=== PATIENT | male | born 1990 | race Caucasian/White ===

== ENCOUNTER 2017-07-14 19:25 | Emergency (ER) | payer SELFPAY ==
[~2017-07-14] VITALS: Ht 177.8 cm; Wt 90.8 kg
[2017-07-14 19:45] VITALS: Ht 177.8 cm; Wt 90.8 kg
[2017-07-14] MEDS ORDERED: KETOROLAC 60 MG INJ IM STA (20:29)
--- NOTE | 2017-07-14 20:39 | ERD ---
ER Documentation Chief Complaint Chief Complaint bilateral low back pain x 3 days; denies injury and diff urinating HPI 27-year-old male presents emergency department for lower back pain for 3 days. Stated it is worse on movement. Denies headache, dizziness, blurred vision, neck pain, throat pain, difficulty swallowing, shoulder pain, chest pain, abdominal pain, nausea, vomiting, constipation, diarrhea, loss of bowel and bladder control, changes in bowel and bladder habits, penile discharge, penile bleeding, trauma, injury, falls, difficulty walking, numbness or tingling sensation, recent exposure to any illness, recent antibiotic use in the last 3 months, recent travel, fever, chills. ROS All systems reviewed and are negative except as per history of present illness. Allergies Allergies: Coded Allergies: No Known Drug Allergy (Verified Allergy, Mild, 02/28/10) PMhx/Soc Medical and Surgical Hx: pt denies Medical Hx, pt denies Surgical Hx History of Surgery: No Anesthesia Reaction: No Hx Neurological Disorder: No Hx Respiratory Disorders: No Hx Cardiac Disorders: No Hx Psychiatric Problems: No Hx Miscellaneous Medical Probl: No Hx Alcohol Use: No Hx Substance Use: No Hx Tobacco Use: No Smoking Status: Never smoker Physical Exam Vitals Vital Signs Date Time Temp Pulse Resp B/P Pulse Ox O2 Delivery O2 Flow Rate FiO2 07/14/17 19:45 98.3 83 20 155/86 98 Physical Exam Const: Well-appearing. No acute distress. Head: Atraumatic Eyes: Normal Conjunctiva ENT: Normal External Ears, Nose and Mouth. Neck: Full range of motion..~ No meningismus. Resp: Clear to auscultation bilaterally Cardio: Regular rate and rhythm, no murmurs Abd: Soft, non tender, non distended. Normal bowel sounds Skin: No petechiae or rashes Back: No midline or flank tenderness. C-spine/T-spine/L-spine are in midline with good and full range of motion and has no swelling/discoloration/ bulging/point of tenderness. Negative straight leg test bilaterally. No saddle anesthesia. Ext: No cyanosis, or edema Neur: Awake and alert. No neurological deficits. Romberg test negative. Psych: Normal Mood and Affect Results 24 hrs Laboratory Tests Test 07/14/17 20:51 Bedside Urine pH (LAB) 6.0 Bedside Urine Protein (LAB) Negative Bedside Urine Glucose (UA) Negative Bedside Urine Ketones (LAB) Negative Bedside Urine Blood Trace-intact Bedside Urine Nitrite (LAB) Negative Bedside Urine Leukocyte Esterase (L Negative Current Medications Medications (Trade) Dose Ordered Sig/Ivett Route PRN Reason Start Time Stop Time Status Last Admin Dose Admin Ketorolac Tromethamine (Toradol) 60 mg ONCE STAT IM 07/14/17 20:29 07/14/17 20:30 DC 07/14/17 20:53 Procedures/MDM I explained to the patient that there is no need for diagnostic imaging for this because he has no injury, physical exam showed that this is possibly musculoskeletal spasms but patient still insists x-ray of the lumbar spine. POC urine dip: Reviewed. X-ray of the lumbar spine: Normal radiographs of the lumbar spine. No evidence of fracture or significant degenerative disc disease. X-ray of the thoracic spine: Mild left convex scoliosis centered at T8. Otherwise, normal radiographs of the thoracic spine. No evidence of fracture or significant degenerative disc disease. Treatment: Toradol IM. With relief of symptoms. Re-evaluation: Denies pain. No saddle anesthesia. Romberg test is negative. Ambulatory with steady gait and without difficulty. Differential diagnosis includes but not limited to fracture versus contusion versus sprain versus lower back strain versus sciatica versus musculoskeletal spasms Final diagnosis: Scoliosis. Musculoskeletal spasms. Prescription: Motrin. Flexeril. Follow-up with PCP in the next 24-48 hours. Come back here in the emergency department for any new symptoms or any worsening symptoms. All questions and concerns are answered. Patient and family member verbalized understanding and agreed with the plan of care. Hemodynamically stable on discharge. Departure Diagnosis: Primary Impression: Back pain Additional Impressions: Scoliosis Muscle spasm Condition: Stable Additional Instructions: Follow-up with PCP in the next 24-48 hours. Come back here in the emergency department for any new symptoms or any worsening symptoms. All questions and concerns are answered. Patient and family member verbalized understanding and agreed with the plan of care. JOHNNY NANCE Jul 14, 2017 20:39
[2017-07-14 20:52] LABS: URINE BLOOD (Dip) POC Trace-intact (NEGATIVE)
--- NOTE | 2017-07-14 21:53 | RADRPT ---
PROCEDURE: XR Thoracic Spine. CLINICAL INDICATION: Thoracic spine pain. TECHNIQUE: AP and lateral views of the thoracic spine were obtained. Images reviewed on a PACS wor kstation. COMPARISON: No prior studies are available for comparison. FINDINGS: There is a mild left convex scoliosis centered at T8. The vertebral body heights and marrow density are normal in appearance. There is preservation of the intervertebral disc spaces. The neural for osmani appear patent. The paraspinal soft tissues unremarkable. The visualized portions of the thor ax are unremarkable. IMPRESSION: 1. Mild left convex scoliosis centered at T8. 2. Otherwise, normal radiographs of the thoracic spine. No evidence of fracture or significant deg enerative disc disease. RPTAT: HGAS .Dev Palacios MD, MD Date Time Electronically viewed and signed by .Dev Palacios MD, on 07/14/2017 21:53 .S/
--- NOTE | 2017-07-14 21:56 | RADRPT ---
PROCEDURE: XR Lumbar Spine. CLINICAL INDICATION: Lumbar spine pain. TECHNIQUE: AP, lateral, and cone-down lateral view of the lumbar spine were obtained. COMPARISON: No prior studies are available for comparison. FINDINGS: The alignment of the lumbar spine is within normal limits. The vertebral body heights and marrow de nsity are normal in appearance. There is preservation of the intervertebral disc spaces. There is no significant facet spondylosis. The neural foramina appear patent. The paraspinal soft tissues u nremarkable. The posterior elements are unremarkable. IMPRESSION: 1. Normal radiographs of the lumbar spine. 2. No evidence of fracture or significant degenerative disc disease. RPTAT: HGAS .Dev Palacios MD, MD Date Time Electronically viewed and signed by .Dev Palacios MD, on 07/14/2017 21:56 .S/
[2017-07-14] MEDS ORDERED: IBUP800T25 PO (22:31)
[2017-07-14] MEDS ORDERED: CYCL-319 PO (22:32)
[2017-07-14 23:10] VITALS: BP 147/83; PULSE 78; RESP 20
== END 2017-07-14 23:11 | disposition home or self-care (01) ==
LOC: FTE 19:25
DX: M41.9 Scoliosis, unspecified (principal)
CPT/HCPCS: 72072; 72100; 81003; 96372; 99284; J1885

== ENCOUNTER 2019-01-12 17:51 | Inpatient (IN) | payer MEDICAID ==
[~2019-01-12] VITALS: Ht 167.6 cm; Wt 90.0 kg
[~2019-01-12 17:51] MED LIST: CYCL10TA7 PO; IBUP800T48 PO
[2019-01-12] MEDS ORDERED: ONDANSETRON 4 MG INJ IV STA (19:58)
[2019-01-12] MEDS ORDERED: KETOROLAC 30 MG INJ IV STA (19:58)
[2019-01-12] MEDS ORDERED: SOD CHLORIDE 0.9% 1,000 ML IV STA (19:58)
[2019-01-13] MEDS ORDERED: VANCOMYCIN 1 GM (PMX) 250 ML IVPB STA (01:12)
--- NOTE | 2019-01-13 01:16 | EN ---
Date/Time of Note Date/Time of Note DATE: 01/13/19 TIME: 01:15 ER Progress Note Lumbar Puncture by me: Patient consented, time out performed, sterilely prepped/draped, anesthetized locally. Anesthesia: 1% lidocaine locally Location: One interspace below the iliac crest Technique: 20 gauge needle with stylet for entry and removal of needle Results: Dry tap No post procedure complications, bleeding, numbness or weakness. This patient was signed out to me by the PA in ER 2. Please refer to her chart for full history and physical. Upon evaluating patient, I consented the patient for lumbar puncture. Unfortunately was unable to complete the lumbar puncture. Patient was treated empirically with Rocephin and vancomycin along with fluids YOANNA HEWITT January 13, 2019 01:16
[2019-01-13] MEDS ORDERED: CEFTRIAXONE 2 GM/50 ML (PMX) 50 ML IVPB ONE (01:30)
[2019-01-13] MEDS ORDERED: BISACODYL (EC) 5 MG TAB PO PRN (02:00)
[2019-01-13] MEDS ORDERED: ONDANSETRON 4 MG INJ IV PRN (02:00)
[2019-01-13] MEDS ORDERED: DOCUSATE SODIUM 100 MG CAP PO PRN (02:00)
[2019-01-13] MEDS ORDERED: VANCOMYCIN IV PER PHARMACY XX SCH (02:00)
[2019-01-13] MEDS ORDERED: NACL 0.9% 3 ML SYG IV SCH (02:00)
[2019-01-13] MEDS: ACETAMINOPHEN 325 MG TAB PO PRN ×2 (02:53→15:46)
[2019-01-13] MEDS: HYDROCODONE/APAP (5/325) TAB PO PRN ×2 (02:53→10:33)
[2019-01-13 03:28] VITALS: Ht 167.6 cm; Wt 90.0 kg
[2019-01-13 03:46] VITALS: BP 132/62; PULSE 104; RESP 20
--- NOTE | 2019-01-13 04:09 | HP ---
Date/Time of Note Date/Time of Note DATE: 01/13/19 TIME: 04:09 Assessment/Plan VTE Prophylaxis SCD applied (from Nsg): Yes Pharmacological prophylaxis: NA/contraindicated Pharm contraindication: low risk/ambulating Lines/Catheters IV Catheter Type (from Nrsg): Peripheral IV Assessment/Plan Hospital Course This is a 28-year-old male being admitted to the [facility] floor for: #1 sepsis: Viral versus bacterial, concern for possible meningitis. CT brain was negative for any acute normalities. Chest x-ray did not show any infiltrates or consolidations. Urine analysis was negative. Patient though does not have any meningeal symptoms, negative Brudzinski and Kernig sign. No nuchal rigidity. Nonetheless given his symptoms will cover with broad-spectrum antibiotic to vancomycin and ceftriaxone. Await culture results. Will consult ID . I have put in a consult for IR lumbar puncture, await lumbar puncture and CSF studies. #2 obesity: Check hemoglobin A1c, lipid panel, TSH #3 DVT GI prophylaxis: SCDs, no GI prophylaxis indicated Further treatment strategy will be implemented as per the clinical course. Result Diagram: 01/12/19204101/12/192041 Results 24hrs Laboratory Tests Test 01/12/19 20:42 White Blood Count 17.0 H Red Blood Count 5.00 Hemoglobin 14.8 Hematocrit 44.3 Mean Corpuscular Volume 88.6 Mean Corpuscular Hemoglobin 29.6 Mean Corpuscular Hemoglobin Concent 33.4 Red Cell Distribution Width 12.3 Platelet Count 389 Mean Platelet Volume 8.9 Immature Granulocytes % 0.500 H Neutrophils % 75.2 Lymphocytes % 14.4 L Monocytes % 9.4 Eosinophils % 0.1 Basophils % 0.4 Nucleated Red Blood Cells % 0.0 Immature Granulocytes # 0.080 H Neutrophils # 12.8 H Lymphocytes # 2.4 Monocytes # 1.6 H Eosinophils # 0.0 Basophils # 0.1 Nucleated Red Blood Cells # 0.0 Urine Color YELLOW Urine Clarity CLEAR Urine pH 6.0 Urine Specific [place] 1.016 Urine Ketones 1+ H Urine Nitrite NEGATIVE Urine Bilirubin NEGATIVE Urine Urobilinogen 2+ H Urine Leukocyte Esterase NEGATIVE Urine Microscopic RBC 0 Urine Microscopic WBC 1 Urine Hemoglobin NEGATIVE Urine Glucose NEGATIVE Urine Total Protein 1+ H Sodium Level 139 Potassium Level 4.0 Chloride Level 98 Carbon Dioxide Level 28 Anion Gap 13 Blood Urea Nitrogen 10 Creatinine 1.04 Est Glomerular Filtrat Rate mL/min > 60 Glucose Level 110 Lactic Acid Level 1.6 Calcium Level 9.9 Total Bilirubin 1.2 Direct Bilirubin 0.00 Indirect Bilirubin 1.2 H Aspartate Amino Transf (AST/SGOT) 43 Alanine Aminotransferase (ALT/SGPT) 51 Alkaline Phosphatase 124 H Troponin I < 0.012 Total Protein 9.5 H Albumin 4.8 Globulin 4.70 H Albumin/Globulin Ratio 1.02 Lipase 45 HPI/ROS Admit Date/Time Admit Date/Time January 13, 2019 at 01:13 Hx of Present Illness Chief complaint: Headache and fever x4 days This is a 28-year-old male with no past medical history who presented to the em ergency department complaining of fever and headache for 4 days. Patient reports that he has a fever and also headache x4 days. He denies any nausea vomiting or diarrhea. Denies any chest pain or shortness of breath. Patient did report he had a nonproductive cough over the last 2 days. He denies any neck stiffness. Denies any photophobia. Denies any changes in his vision or hearing. In the emergency department there was concern for meningitis and a lumbar puncture was attempted but was unsuccessful. He is accompanied today by his . He reports that he only has one sexual partner which is his . Patient did present to the emergency department with a temperature of 103.2 and patient was sinus tachycardic. Allergies: NKDA Medications: None ROS Const: As per HPI Eyes : No pain discharge or redness or change in visual acuity ENT: No pain, sore throat, congestion, congestion, dysphagia or discharge Respiratory: No shortness of breath, cough, sputum, wheezing, or pleuritic pain Cardiovascular: No chest pain, palpitation, PND, or edema GI : no change in appetite, abdominal pain, nausea, vomiting, diarrhea, constipation, or change in the color his stool Genitourinary: No dysuria, hematuria, flank pain , discharge or CVA tenderness Musculoskeletal: No joint pain, back pain, neck pain, restricted range of motion in neck or joints Skin: No rash, bruising or hives Neuro: As per HPI Endocrine: No polyuria, polydipsia, temperature intolerance Psych: No hallucination, depression, anxiety or suicidal ideation PMH/Family/Social Past Medical History Medical History: no pertinent history Medications Current Medications IV Flush (NS 3 ml) 3 ml PER PROTOCOL IV ; Start 01/13/19 at 02:00 Ondansetron HCl (Zofran Inj) 4 mg Q6H PRN IV NAUSEA/VOMITING; Start 01/13/19 at 02:00 Acetaminophen (Tylenol Tab) 650 mg Q6H PRN PO .PAIN 1-3 OR TEMP Last administered on 01/13/19at 02:53; Admin Dose 650 MG; Start 01/13/19 at 02:00 Acetaminophen/ Hydrocodone Bitart ([place] (5/325)) 1 tab Q6H PRN PO .MOD PAIN 4- 6 Last administered on 01/13/19at 02:53; Admin Dose 1 TAB; Start 01/13/19 at 02:00 Docusate Sodium (Colace) 100 mg Q12H PRN PO .CONSTIPATION; Start 01/13/19 at 02:00 Bisacodyl (Dulcolax) 5 mg DAILY PRN PO .CONSTIPATION; Start 01/13/19 at 02:00 Vancomycin HCl (Vanco Iv Per Pharmacy) VANCOMYCIN PER PHARMACY PER PROTOCOL XX ; Start 01/13/19 at 02:00 Ceftriaxone Sodium 50 ml @ 100 mls/hr Q12H IVPB ; Start 01/13/19 at 14:00 Vancomycin HCl 1.25 gm/Sodium Chloride 250 ml @ 83.333 mls/ hr Q8H IVPB ; Start 01/13/19 at 09:00 Coded Allergies: No Known Drug Allergy (Verified Allergy, Mild, 02/28/10) Past Surgical History Appendectomy Family History Significant Family History: no pertinent family hx Social History Alcohol Use: none Smoking Status: Never smoker Drug Use: none Exam/Review of Systems Vital Signs Vitals Vital Signs Date Temp Pulse Resp B/P (MAP) Pulse Ox O2 O2 Flow FiO2 Time Delivery Rate 01/13/19 101.3 104 20 132/62 95 Room Air 03:46 (85) Exam Exam General: Currently lying in bed in no acute distress, patient is warm to touch. HEENT: Atraumatic, normocephalic. The pupils are equal, round and reactive. Extraocular motor are intact Neck: Supple with full range of motion. No rigidity or meningismus Chest: Nontender Lungs: Clear to auscultation bilaterally no crackles rales or wheezing Heart: Sinus tachycardia Abdomen: Soft , nontender, nondistended , bowel sounds are present. No guarding no rebound tenderness , No masses or organomegaly. No costovertebral temporal angle mass Extremities: Normal to inspection, no edema no cyanosis Neurologic: Normal mental status, speech normal, cranial nerves II through XII are intact, motor and sensory are intact, no focal weakness, negative Kernig's negative Brudzinski sign Additional Comments PROCEDURE: CT Brain without contrast. CLINICAL INDICATION: Headache and fever. TECHNIQUE: A CT of the brain without contrast was performed utilizing axial sections from the skull base through the vertex. The patient was scanned without intravenous contrast enhancement. Sagittal and coronal reformatted images were obtained using the data from the axial images. Total exam DLP is 634.23 mGy-cm. CTDIvol is 38.20 mGy. One or more of the following dose reduction techniques were used: Automated exposure control, adjustment of the mA and/or kV according to patient size, use of iterative reconstruction technique. DICOM images are available. COMPARISON: None available FINDINGS: There is normal campos-white matter differentiation. The ventricles and cisterns are normal. There is no intracranial hemorrhage or space-occupying lesion. There is no skull fracture or lytic lesion. IMPRESSION: 1. Normal noncontrast CT scan of the brain. 2. No intracranial hemorrhage. RPTAT: QQ .Devyn Kim MD, Date Time Electronically viewed and signed by .Devyn Kim MD, MD on 01/12/2019 22:36 .R/ CC: MERRICK CRAMER PA-C [id number] PROCEDURE: XR Chest. CLINICAL INDICATION: Abdominal pain TECHNIQUE: Single frontal view of the chest was obtained COMPARISON: None FINDINGS: The heart and mediastinum are within normal limits. There is mild left lower lobe linear atelectasis. The lungs are otherwise clear. There is no pleural effusion or pneumothorax. RPTAT: AA IMPRESSION: Mild left lower lobe linear atelectasis. .Thomas Olea MD, MD Date Time Electronically viewed and signed by .Thomas Olea MD, MD on 01/12/2019 21:17 .S/ CC: MERRICK CRAMER PA-C [id number] ZEESHAN SUTHERLAND January 13, 2019 04:09
[2019-01-13] MEDS: IBUPROFEN 600 MG TAB PO PRN ×2 (04:28→13:29)
[2019-01-13] MEDS ORDERED: DIPHTH/TET/ACEL PERTUSS (ADULT) 0.5 ML VIAL IM* ONE (04:30)
[2019-01-13 05:24] VITALS: PULSE 96
[2019-01-13 07:49] VITALS: BP 107/59; PULSE 62; RESP 18
[2019-01-13] MEDS ORDERED: VANCOMYCIN HCL 1.25 GM in SOD CHLORIDE 0.9% 250 ML IVPB SCH (09:00)
--- NOTE | 2019-01-13 09:54 | CONS ---
Assessment/Plan Assessment/Plan Hospital Course (Demo Recall) 1) probable acute viral syndrome get rapid flu screen and get viral pcr of nares no evidence for meningitis, no LP needed d/c isolation and cancel LP to d/c vanco/ceftriaxone observe off antibiotics CT head does not show sinus disease, u/a was neg and CXR was neg no respiratory c/o (no cough of SOB) check procalcitonin in a.m. Consultation Date/Type/Reason Admit Date/Time January 13, 2019 at 01:13 Date of Consultation: January 13, 2019 Type of Consult ID Date/Time of Note DATE: 01/13/19 TIME: 09:42 Hx of Present Illness Pt had a friend with the flu 8 days ago 5 days ago he started to develop F, generalized muscle aches and CHARLTON these have continued and is the reason for the admission He states he has not had a CHARLTON for the last 5 hours he has had anorexia and vomited once yesterday no current N no vision changes, stiff neck, diarrhea, dysuria, rashes he did have some knee pain but not currently his and children are doing well Past Medical History Medical History: no pertinent history Home Meds Active Scripts Cyclobenzaprine Hcl* (Cyclobenzaprine Hcl*) 10 Mg Tablet, 10 MG PO Q12 PRN for MUSCLE SPASMS, #20 TAB Prov:JOHNNY NANCE 07/14/17 Ibuprofen* (Motrin*) 800 Mg Tab, 800 MG PO Q8 PRN for PAIN AND OR ELEVATED TEMP, #30 TAB Prov:JOHNNY NANCE 07/14/17 Medications Current Medications IV Flush (NS 3 ml) 3 ml PER PROTOCOL IV ; Start 01/13/19 at 02:00 Ondansetron HCl (Zofran Inj) 4 mg Q6H PRN IV NAUSEA/VOMITING; Start 01/13/19 at 02:00 Acetaminophen (Tylenol Tab) 650 mg Q6H PRN PO .PAIN 1-3 OR TEMP Last administered on 01/13/19at 02:53; Admin Dose 650 MG; Start 01/13/19 at 02:00 Acetaminophen/ Hydrocodone Bitart ([place] (5/325)) 1 tab Q6H PRN PO .MOD PAIN 4- 6 Last administered on 01/13/19at 02:53; Admin Dose 1 TAB; Start 01/13/19 at 02:00 Docusate Sodium (Colace) 100 mg Q12H PRN PO .CONSTIPATION; Start 01/13/19 at 02:00 Bisacodyl (Dulcolax) 5 mg DAILY PRN PO .CONSTIPATION; Start 01/13/19 at 02:00 Vancomycin HCl (Vanco Iv Per Pharmacy) VANCOMYCIN PER PHARMACY PER PROTOCOL XX ; Start 01/13/19 at 02:00 Ceftriaxone Sodium 50 ml @ 100 mls/hr Q12H IVPB ; Start 01/13/19 at 14:00 Vancomycin HCl 1.25 gm/Sodium Chloride 250 ml @ 83.333 mls/ hr Q8H IVPB Last administered on 01/13/19at 08:46; Admin Dose 83.333 MLS/HR; Start 01/13/19 at 09:00 Ibuprofen (Motrin) 600 mg Q6H PRN PO MILD PAIN LEVEL 1-3 Last administered on 01/13/19at 04:28; Admin Dose 600 MG; Start 01/13/19 at 04:30 Miscellaneous Information (*Rx Drug Level Order Reminder*) VANCO TR AT 0800 0800 ONCE XX ; Start 01/14/19 at 08:00; Stop 01/14/19 at 08:01 Allergies: Coded Allergies: No Known Drug Allergy (Verified Allergy, Mild, 02/28/10) Social History Alcohol Use: none Smoking Status: Never smoker Drug Use: none Exam/Review of Systems Exam Vitals Vital Signs Date Temp Pulse Resp B/P (MAP) Pulse Ox O2 O2 Flow FiO2 Time Delivery Rate 01/13/19 97.8 62 18 107/59 97 Room Air 07:49 (75) Intake and Output 01/12/19 01/12/19 01/13/19 1515:00 23:00 07:00 IntakeIntake Total 250 ml BalanceBalance 250 ml Constitutional: alert, oriented Eyes: nl sclera ENMT: mucosa pink and moist Neck: supple Respiratory: clear to auscultation Cardiovascular: regular rate and rhythm Gastrointestinal: soft, non-tender Extremities: other (no swelling or rashes noted) Neurological: other (non focal) Results Result Diagram: 01/12/19204101/12/192041 Results 24hrs Laboratory Tests Test 01/12/19 20:42 01/13/19 06:32 White Blood Count 17.0 H Red Blood Count 5.00 Hemoglobin 14.8 Hematocrit 44.3 Mean Corpuscular Volume 88.6 Mean Corpuscular Hemoglobin 29.6 Mean Corpuscular Hemoglobin Concent 33.4 Red Cell Distribution Width 12.3 Platelet Count 389 Mean Platelet Volume 8.9 Immature Granulocytes % 0.500 H Neutrophils % 75.2 Lymphocytes % 14.4 L Monocytes % 9.4 Eosinophils % 0.1 Basophils % 0.4 Nucleated Red Blood Cells % 0.0 Immature Granulocytes # 0.080 H Neutrophils # 12.8 H Lymphocytes # 2.4 Monocytes # 1.6 H Eosinophils # 0.0 Basophils # 0.1 Nucleated Red Blood Cells # 0.0 Urine Color YELLOW Urine Clarity CLEAR Urine pH 6.0 Urine Specific [place] 1.016 Urine Ketones 1+ H Urine Nitrite NEGATIVE Urine Bilirubin NEGATIVE Urine Urobilinogen 2+ H Urine Leukocyte Esterase NEGATIVE Urine Microscopic RBC 0 Urine Microscopic WBC 1 Urine Hemoglobin NEGATIVE Urine Glucose NEGATIVE Urine Total Protein 1+ H Sodium Level 139 Potassium Level 4.0 Chloride Level 98 Carbon Dioxide Level 28 Anion Gap 13 Blood Urea Nitrogen 10 Creatinine 1.04 Est Glomerular Filtrat Rate mL/min > 60 Glucose Level 110 Lactic Acid Level 1.6 1.1 Calcium Level 9.9 Total Bilirubin 1.2 Direct Bilirubin 0.00 Indirect Bilirubin 1.2 H Aspartate Amino Transf (AST/SGOT) 43 Alanine Aminotransferase (ALT/SGPT) 51 Alkaline Phosphatase 124 H Troponin I < 0.012 Total Protein 9.5 H Albumin 4.8 Globulin 4.70 H Albumin/Globulin Ratio 1.02 Lipase 45 Medications Medication Current Medications IV Flush (NS 3 ml) 3 ml PER PROTOCOL IV ; Start 01/13/19 at 02:00 Ondansetron HCl (Zofran Inj) 4 mg Q6H PRN IV NAUSEA/VOMITING; Start 01/13/19 at 02:00 Acetaminophen (Tylenol Tab) 650 mg Q6H PRN PO .PAIN 1-3 OR TEMP Last administered on 01/13/19at 02:53; Admin Dose 650 MG; Start 01/13/19 at 02:00 Acetaminophen/ Hydrocodone Bitart ([place] (5/325)) 1 tab Q6H PRN PO .MOD PAIN 4- 6 Last administered on 01/13/19at 02:53; Admin Dose 1 TAB; Start 01/13/19 at 02:00 Docusate Sodium (Colace) 100 mg Q12H PRN PO .CONSTIPATION; Start 01/13/19 at 02:00 Bisacodyl (Dulcolax) 5 mg DAILY PRN PO .CONSTIPATION; Start 01/13/19 at 02:00 Vancomycin HCl (Vanco Iv Per Pharmacy) VANCOMYCIN PER PHARMACY PER PROTOCOL XX ; Start 01/13/19 at 02:00 Ceftriaxone Sodium 50 ml @ 100 mls/hr Q12H IVPB ; Start 01/13/19 at 14:00 Vancomycin HCl 1.25 gm/Sodium Chloride 250 ml @ 83.333 mls/ hr Q8H IVPB Last administered on 01/13/19at 08:46; Admin Dose 83.333 MLS/HR; Start 01/13/19 at 09:00 Ibuprofen (Motrin) 600 mg Q6H PRN PO MILD PAIN LEVEL 1-3 Last administered on 01/13/19at 04:28; Admin Dose 600 MG; Start 01/13/19 at 04:30 Miscellaneous Information (*Rx Drug Level Order Reminder*) VANCO TR AT 0800 0800 ONCE XX ; Start 01/14/19 at 08:00; Stop 01/14/19 at 08:01 HAYDE OSORIO MD January 13, 2019 09:54
[2019-01-13] MEDS ORDERED: CEFTRIAXONE 2 GM/50 ML (PMX) 50 ML IVPB SCH (14:00)
[2019-01-13 14:02] VITALS: BP 124/71; PULSE 105; RESP 18
--- NOTE | 2019-01-13 14:53 | PN ---
Date/Time of Note Date/Time of Note DATE: 01/13/19 TIME: 14:45 Assessment/Plan VTE Prophylaxis Risk score (from Ns)>0 risk: 1 SCD applied (from Ns): Yes Pharmacological prophylaxis: NA/contraindicated Pharm contraindication: low risk/ambulating Lines/Catheters IV [facility]from [facility] [place] Assessment/Plan Assessment/Plan 28-year-old man admitted for fever. # sepsis: - Very low suspicion for bacterial meningitis now that headache has resolved, and there is no neck stiffness - Influenza negative. Waiting on results of viral PCR. - Will stop antibiotics and watch overnight. - Likely discharge tomorrow. - Appreciate Dr. Latif' help. # obesity: Check hemoglobin A1c, lipid panel, TSH # DVT GI prophylaxis: SCDs, no GI prophylaxis indicated Result Diagram: 01/12/19204101/12/192041 Subjective 24 Hr Interval Summary Free Text/Dictation Patient feeling well. Headache has resolved. Still anorexic but no nausea. Exam/Review of Systems Exam Vitals Vital Signs Date Temp Pulse Resp B/P (MAP) Pulse Ox O2 O2 Flow FiO2 Time Delivery Rate 01/13/19 97.9 105 18 124/71 94 Room Air 14:02 (88) Intake and Output 01/12/19 01/12/19 01/13/19 1515:00 23:00 07:00 IntakeIntake Total 250 ml BalanceBalance 250 ml Exam General: Currently lying in bed in no acute distress, patient is very warm to touch. HEENT: Atraumatic, normocephalic. The pupils are equal, round and reactive. Extraocular motor are intact Neck: Supple with full range of motion. No rigidity or meningismus Chest: Nontender Lungs: Clear to auscultation bilaterally no crackles rales or wheezing Heart: Sinus tachycardia Abdomen: Soft , nontender, nondistended , bowel sounds are present. No guarding no rebound tenderness , No masses or organomegaly. No costovertebral temporal angle mass Extremities: Normal to inspection, no edema no cyanosis Results Results 24hrs Laboratory Tests Test 01/12/19 20:42 01/13/19 06:31 01/13/19 06:32 White Blood Count 17.0 H Red Blood Count 5.00 Hemoglobin 14.8 Hematocrit 44.3 Mean Corpuscular Volume 88.6 Mean Corpuscular Hemoglobin 29.6 Mean Corpuscular Hemoglobin Concent 33.4 Red Cell Distribution Width 12.3 Platelet Count 389 Mean Platelet Volume 8.9 Immature Granulocytes % 0.500 H Neutrophils % 75.2 Lymphocytes % 14.4 L Monocytes % 9.4 Eosinophils % 0.1 Basophils % 0.4 Nucleated Red Blood Cells % 0.0 Immature Granulocytes # 0.080 H Neutrophils # 12.8 H Lymphocytes # 2.4 Monocytes # 1.6 H Eosinophils # 0.0 Basophils # 0.1 Nucleated Red Blood Cells # 0.0 Urine Color YELLOW Urine Clarity CLEAR Urine pH 6.0 Urine Specific [place] 1.016 Urine Ketones 1+ H Urine Nitrite NEGATIVE Urine Bilirubin NEGATIVE Urine Urobilinogen 2+ H Urine Leukocyte Esterase NEGATIVE Urine Microscopic RBC 0 Urine Microscopic WBC 1 Urine Hemoglobin NEGATIVE Urine Glucose NEGATIVE Urine Total Protein 1+ H Sodium Level 139 Potassium Level 4.0 Chloride Level 98 Carbon Dioxide Level 28 Anion Gap 13 Blood Urea Nitrogen 10 Creatinine 1.04 Est Glomerular Filtrat Rate mL/min > 60 Glucose Level 110 Lactic Acid Level 1.6 1.1 Calcium Level 9.9 Total Bilirubin 1.2 Direct Bilirubin 0.00 Indirect Bilirubin 1.2 H Aspartate Amino Transf (AST/SGOT) 43 Alanine Aminotransferase (ALT/SGPT) 51 Alkaline Phosphatase 124 H Troponin I < 0.012 Total Protein 9.5 H Albumin 4.8 Globulin 4.70 H Albumin/Globulin Ratio 1.02 Lipase 45 HIV (1&2) Antibody NEGATIVE Medications Medication Current Medications IV Flush (NS 3 ml) 3 ml PER PROTOCOL IV ; Start 01/13/19 at 02:00 Ondansetron HCl (Zofran Inj) 4 mg Q6H PRN IV NAUSEA/VOMITING; Start 01/13/19 at 02:00 Acetaminophen (Tylenol Tab) 650 mg Q6H PRN PO .PAIN 1-3 OR TEMP Last administered on 01/13/19at 02:53; Admin Dose 650 MG; Start 01/13/19 at 02:00 Acetaminophen/ Hydrocodone Bitart ([place] (5/325)) 1 tab Q6H PRN PO .MOD PAIN 4- 6 Last administered on 01/13/19at 10:33; Admin Dose 1 TAB; Start 01/13/19 at 02:00 Docusate Sodium (Colace) 100 mg Q12H PRN PO .CONSTIPATION; Start 01/13/19 at 02:00 Bisacodyl (Dulcolax) 5 mg DAILY PRN PO .CONSTIPATION; Start 01/13/19 at 02:00 Ibuprofen (Motrin) 600 mg Q6H PRN PO MILD PAIN LEVEL 1-3 Last administered on 01/13/19at 13:29; Admin Dose 600 MG; Start 01/13/19 at 04:30 MANFRED GUZMAN MD January 13, 2019 14:53
[2019-01-13 20:15] VITALS: BP 132/68; PULSE 90; RESP 18
[2019-01-14] MEDS: ACETAMINOPHEN 325 MG TAB PO PRN (01:40)
[2019-01-14] MEDS ORDERED: CEFTRIAXONE 2 GM/50 ML (PMX) 50 ML IVPB SCH (02:00)
[2019-01-14 02:29] VITALS: BP 126/65; PULSE 100; RESP 20
[2019-01-14 07:36] VITALS: BP 119/66; PULSE 69; RESP 18
[2019-01-14] MEDS ORDERED: AZITHROMYCIN 500 MG TAB PO ONE (10:00)
--- NOTE | 2019-01-14 10:02 | CONS ---
Assessment/Plan Assessment/Plan Hospital Course (Demo Recall) 1) probable acute viral syndrome get rapid flu screen and get viral pcr of nares no evidence for meningitis, no LP needed d/c isolation and cancel LP to d/c vanco/ceftriaxone observe off antibiotics CT head does not show sinus disease, u/a was neg and CXR was neg no respiratory c/o (no cough of SOB) check procalcitonin in a.m. 01/14 - procalcitonin is neg but with bronchitis it could be neg will start a z-pack and pt can be d/c from ID perspective no CHARLTON today, no LP needed still Consultation Date/Type/Reason Admit Date/Time January 13, 2019 at 01:13 Initial Consult Date 01/13/19 Type of Consult ID Date/Time of Note DATE: 01/14/19 TIME: 09:59 24 HR Interval Summary Free Text/Dictation pt had some cough yesterday, no phlegm but cough is better today no N, V no CHARLTON he feels better, he can not tell that he has a fever, there are no chills or sweats no D Exam/Review of Systems Exam Vitals Vital Signs Date Temp Pulse Resp B/P (MAP) Pulse Ox O2 O2 Flow FiO2 Time Delivery Rate 01/14/19 98.3 69 18 119/66 97 Room Air 07:36 (83) Intake and Output 01/13/19 01/13/19 01/14/19 1414:59 22:59 06:59 IntakeIntake Total 705 ml 320 ml 240 ml BalanceBalance 705 ml 320 ml 240 ml Constitutional: alert, oriented Eyes: nl sclera Respiratory: clear to auscultation Cardiovascular: regular rate and rhythm Gastrointestinal: soft, non-tender Results Result Diagram: 01/14/19 0749 01/14/19 0749 Results 24hrs Laboratory Tests Test 01/14/19 07:49 White Blood Count 11.9 #H Red Blood Count 4.54 L Hemoglobin 13.3 L Hematocrit 40.2 L Mean Corpuscular Volume 88.5 Mean Corpuscular Hemoglobin 29.3 Mean Corpuscular Hemoglobin Concent 33.1 Red Cell Distribution Width 12.1 Platelet Count 359 Mean Platelet Volume 8.9 Immature Granulocytes % 0.500 H Neutrophils % 68.8 Lymphocytes % 18.5 Monocytes % 11.0 Eosinophils % 0.8 Basophils % 0.4 Nucleated Red Blood Cells % 0.0 Immature Granulocytes # 0.060 H Neutrophils # 8.2 H Lymphocytes # 2.2 Monocytes # 1.3 H Eosinophils # 0.1 Basophils # 0.1 Nucleated Red Blood Cells # 0.0 Sodium Level 139 Potassium Level 4.1 Chloride Level 101 Carbon Dioxide Level 27 Anion Gap 11 Blood Urea Nitrogen 11 Creatinine 0.91 Est Glomerular Filtrat Rate mL/min > 60 Glucose Level 101 Hemoglobin A1c 5.5 Calcium Level 9.0 Magnesium Level 2.3 Total Bilirubin 0.7 Direct Bilirubin 0.00 Indirect Bilirubin 0.7 Aspartate Amino Transf (AST/SGOT) 55 H Alanine Aminotransferase (ALT/SGPT) 60 Alkaline Phosphatase 125 H Total Protein 8.4 H Albumin 4.3 Globulin 4.10 H Albumin/Globulin Ratio 1.04 Triglycerides Level 187 H Cholesterol Level 239 H LDL Cholesterol, Calculated 176 HDL Cholesterol 26 L Cholesterol/HDL Ratio 9.1 Procalcitonin 0.18 H Thyroid Stimulating Hormone (TSH) Pending Medications Medication Current Medications IV Flush (NS 3 ml) 3 ml PER PROTOCOL IV ; Start 01/13/19 at 02:00 Ondansetron HCl (Zofran Inj) 4 mg Q6H PRN IV NAUSEA/VOMITING; Start 01/13/19 at 02:00 Acetaminophen (Tylenol Tab) 650 mg Q6H PRN PO .PAIN 1-3 OR TEMP Last administered on 01/14/19at 01:40; Admin Dose 650 MG; Start 01/13/19 at 02:00 Acetaminophen/ Hydrocodone Bitart ([place] (5/325)) 1 tab Q6H PRN PO .MOD PAIN 4- 6 Last administered on 01/13/19at 10:33; Admin Dose 1 TAB; Start 01/13/19 at 02:00 Docusate Sodium (Colace) 100 mg Q12H PRN PO .CONSTIPATION; Start 01/13/19 at 02:00 Bisacodyl (Dulcolax) 5 mg DAILY PRN PO .CONSTIPATION; Start 01/13/19 at 02:00 Ibuprofen (Motrin) 600 mg Q6H PRN PO MILD PAIN LEVEL 1-3 Last administered on 01/13/19at 13:29; Admin Dose 600 MG; Start 01/13/19 at 04:30 HAYDE OSORIO MD January 14, 2019 10:02
[2019-01-14 13:43] VITALS: BP 142/70; PULSE 99; RESP 18
[2019-01-14] MEDS ORDERED: AZIT500T2 PO (14:33)
--- NOTE | 2019-01-14 14:34 | PDOCDIS ---
Discharge Instructions DIAGNOSIS Discharge Diagnosis Acute bronchitis CONDITION [id number] Patient Condition: [id number] Good HOME CARE INSTRUCTIONS: [id number] Diet Instructions: [id number] Regular ACTIVITY: [id number] Activity Restrictions: [id number] No Restrictions FOLLOW UP/APPOINTMENTS Follow-up Plan 1. Take all medications as prescribed. Follow instructions for azithromycin (an antibiotic) 2. Return the the emergency room if you develop severe headache with neck stiffness; or if you develop shortness of breath that does not resolve with rest. 1. [place] todos los medicamentos segn lo prescrito. Siga las instrucciones de azitromicina (un antibitico). 2. Regrese a la aren de emergencias si presenta dolor de nadir ernst con rigidez en el johnathan; o si presenta falta de aliento que no se resuelve con el descanso. MANFRED GUZMAN MD January 14, 2019 14:34
--- NOTE | 2019-01-14 18:01 | DS ---
Date/Time of Note Date/Time of Note DATE: 01/14/19 TIME: 17:57 Discharge Summary Admission/Discharge Info Admit Date/Time January 13, 2019 at 01:13 Discharge Date/Time January 14, 2019 at 16:41 Discharge Diagnosis Acute bronchitis Patient Condition: Good Consults Dr. Latif infectious disease Procedures LP attempted in ED (01/13), unsuccessful. Hx of Present Illness Chief complaint: Headache and fever x4 days This is a 28-year-old male with no past medical history who presented to the emergency department complaining of fever and headache for 4 days. Patient reports that he has a fever and also headache x4 days. He denies any nausea vomiting or diarrhea. Denies any chest pain or shortness of breath. Patient did report he had a nonproductive cough over the last 2 days. He denies any neck stiffness. Denies any photophobia. Denies any changes in his vision or hearing. In the emergency department there was concern for meningitis and a lumbar puncture was attempted but was unsuccessful. He is accompanied today by his . He reports that he only has one sexual partner which is his . Patient did present to the emergency department with a temperature of 103.2 and patient was sinus tachycardic. Allergies: NKDA Medications: None Hospital Course The patient was started on empiric antibiotics. Blood cultures were negative, influenza negative. After discussion with Dr. Latif antibiotics were stopped. Symptoms resolved, including headache. There was very low suspicion for meningitis so LP was not attempted again. Patient will be discharged home on azithromycin for possible atypical bacterial bronchitis. Home Meds Active Scripts Azithromycin* (Zithromax* Tri-Ronnie) 500 Mg Tablet, 500 MG PO DAILY for 3 Days, #1 TAB Prov:MANFRED GUZMAN MD 01/14/19 Cyclobenzaprine Hcl* (Cyclobenzaprine Hcl*) 10 Mg Tablet, 10 MG PO Q12 PRN for MUSCLE SPASMS, #20 TAB Prov:JOHNNY NANCE 07/14/17 Ibuprofen* (Motrin*) 800 Mg Tab, 800 MG PO Q8 PRN for PAIN AND OR ELEVATED TEMP, #30 TAB Prov:JOHNNY NANCE 07/14/17 Follow-up Plan 1. Take all medications as prescribed. Follow instructions for azithromycin (an antibiotic) 2. Return the the emergency room if you develop severe headache with neck stiffness; or if you develop shortness of breath that does not resolve with rest. 1. [place] todos los medicamentos segn lo prescrito. Siga las instrucciones de azitromicina (un antibitico). 2. Regrese a la aren de emergencias si presenta dolor de nadir ernst con rigid ez en el johnathan; o si presenta falta de aliento que no se resuelve con el descanso. Primary Care Provider Care Physician No Primary Time spent on discharge: > 30 minutes Pending Labs Laboratory Tests Test 01/14/19 07:49 White Blood Count 11.9 10^3/ul (4.8-10.8) Red Blood Count 4.54 10^6/ul (4.70-6.10) Hemoglobin 13.3 g/dl (14.0-18.0) Hematocrit 40.2 % (42.0-52.0) Mean Corpuscular Volume 88.5 fl (82.0-101.0) Mean Corpuscular Hemoglobin 29.3 pg (29.0-33.0) Mean Corpuscular Hemoglobin Concent 33.1 g/dl (32.0-37.0) Red Cell Distribution Width 12.1 % (11.5-14.5) Platelet Count 359 10^3/UL (140-415) Mean Platelet Volume 8.9 fl (7.4-10.4) Immature Granulocytes % 0.500 % (0.001-0.429) Neutrophils % 68.8 % (39.0-77.0) Lymphocytes % 18.5 % (15.0-51.0) Monocytes % 11.0 % (0.0-11.0) Eosinophils % 0.8 % (0.0-7.0) Basophils % 0.4 % (0.0-2.0) Nucleated Red Blood Cells % 0.0 /100WBC (0.0-0.0) Immature Granulocytes # 0.060 10^3/ul (0.0-0.031) Neutrophils # 8.2 10^3/ul (1.6-7.5) Lymphocytes # 2.2 10^3/ul (0.8-2.9) Monocytes # 1.3 10^3/ul (0.3-0.9) Eosinophils # 0.1 10^3/ul (0.0-0.5) Basophils # 0.1 10^3/ul (0.0-0.1) Nucleated Red Blood Cells # 0.0 10^3/ul (0.0-0.0) Sodium Level 139 mmol/L (135-144) Potassium Level 4.1 mmol/L (3.5-5.1) Chloride Level 101 mmol/L (97-110) Carbon Dioxide Level 27 mmol/L (21-31) Anion Gap 11 (5-13) Blood Urea Nitrogen 11 mg/dl (7-20) Creatinine 0.91 mg/dl (0.61-1.24) Est Glomerular Filtrat Rate mL/min > 60 mL/min (>60) Glucose Level 101 mg/dl (70-220) Hemoglobin A1c 5.5 % (0-5.9) Calcium Level 9.0 mg/dl (8.4-10.2) Magnesium Level 2.3 mg/dl (1.7-2.5) Total Bilirubin 0.7 mg/dl (0.2-1.3) Direct Bilirubin 0.00 mg/dl (0.00-0.20) Indirect Bilirubin 0.7 mg/dl (0-1.1) Aspartate Amino Transf (AST/SGOT) 55 IU/L (15-46) Alanine Aminotransferase (ALT/SGPT) 60 IU/L (13-69) Alkaline Phosphatase 125 IU/L (42-121) Total Protein 8.4 g/dl (6.1-8.1) Albumin 4.3 g/dl (3.3-4.9) Globulin 4.10 g/dl (1.3-3.2) Albumin/Globulin Ratio 1.04 Triglycerides Level 187 mg/dl (0-149) Cholesterol Level 239 mg/dl (100-200) LDL Cholesterol, Calculated 176 mg/dl HDL Cholesterol 26 mg/dl (30-63) Cholesterol/HDL Ratio 9.1 RATIO Procalcitonin 0.18 ng/mL (0.00-0.10) Thyroid Stimulating Hormone (TSH) 1.410 MIU/L (0.465-4.680) Microbiology Date/Time Source Procedure Growth Status 01/13/19 18:25 Penis Gram Stain - Final Resulted 01/13/19 18:25 Penis Neisseria gonorrhoeae Culture - Preliminary Resulted MANFRED GUZMAN MD January 14, 2019 18:01
[2019-01-15] MEDS ORDERED: AZITHROMYCIN 250 MG TAB PO SCH (09:00)
== END 2019-01-14 16:41 | disposition home or self-care (01) | DRG 872 ==
LOC: FTE 17:51 → 5EC 01-13 01:13
PROVIDERS: ADMIT Family Medicine; ATTEND Internal Medicine
DX: A41.9 Sepsis, unspecified organism (principal); R51 Headache; R10.9 Unspecified abdominal pain; B34.9 Viral infection, unspecified; E66.9 Obesity, unspecified; Z68.32 Body mass index [BMI] 32.0-32.9, adult; J40 Bronchitis, not specified as acute or chronic
CPT/HCPCS: 70450; 71045; 80053; 80061; 81001; 83036; 83605; 83690; 83735; 84145; 84443; 84484; 85025; 86592; 86703; 87070; 87275; 87276; 87279; 87280; 87400; 90715; 93005; J0696; J1885; J2405; J3370; J7030; J7050